=== PATIENT | male | born 1950 | race Caucasian/White ===

== ENCOUNTER 2019-03-20 09:29 | Inpatient (IN) | payer OTHER, MEDICARE ==
[~2019-03-20] VITALS: Ht 177.8 cm; Wt 127.9 kg
[~2019-03-20 09:29] MED LIST: BACITRACIN 50,000 UNIT VIAL ONE; CRESTOR10 MG PO; LISINOPRIL-HCT1 EAC1 PO; LORAZEPAM2 MG/1 M1 PO; METOPROLOL SUCC50 MG PO; NABUMETONE500 MG PO; NIFEDIPINE ER30 M1 PO; PROAIR HFA INH8.5 GM INH; ROPIVACAINE 246.25 MG, EPINEPHRINE HCL 1:1000 1ML 0.5 MG, CLONIDINE HCL 0.08 MG, KETORO... INJ ONE; SERTRALINE HCL50 MG PO; SODIUM CHLORIDE 0.9% 500ML 500 ML ONE; SYMBICORT 16010.2 GM INH; TRANEXAMIC ACID 1,000 MG/10 ML ML ONE; VANCOMYCIN HCL 1,000 MG ONE
[2019-03-20] MEDS ORDERED: CELECOXIB 200 MG CAP ONE (10:05)
[2019-03-20] MEDS ORDERED: DEXAMETHASONE SOD PHOS 10 MG/1 ML VIAL ONE (10:05)
[2019-03-20] MEDS ORDERED: GABAPENTIN 300 MG CAP ONE (10:05)
[2019-03-20] MEDS ORDERED: CEFAZOLIN SOD 1 GM/NS 50ML 100 ML IV ONE (10:06)
[2019-03-20] MEDS ORDERED: BUPIVACAINE 7.5MG/ML /DEXTROSE 82.5MG/ML 2 ML AMP INJ ONE (11:36)
[2019-03-20] MEDS ORDERED: HYDROCODONE/APAP 7.5MG-325MG 1 EA TAB PO PRN (13:30)
[2019-03-20] MEDS ORDERED: KETOROLAC TROMETHAMINE 30 MG/ML VIAL IV PRN (13:30)
[2019-03-20] MEDS ORDERED: DOCUSATE SODIUM 100 MG CAP PO PRN (13:30)
[2019-03-20] MEDS ORDERED: ACETAMINOPHEN 650 MG SUPP PR PRN (13:30)
[2019-03-20] MEDS ORDERED: DIPHENHYDRAMINE HCL INJ 50 MG/ML VIAL IM/IV PRN (13:30)
[2019-03-20] MEDS ORDERED: PROMETHAZINE HCL (IM) 25 MG/ML VIAL IM PRN (13:30)
[2019-03-20] MEDS ORDERED: ONDANSETRON HCL INJ 2MG/ML 2ML 2 MG/ML VIAL IV PRN (13:30)
[2019-03-20] MEDS ORDERED: HYDROCODONE/APAP 5MG-325MG TAB PO PRN (13:30)
--- NOTE | 2019-03-20 14:17 | Diagnostic Imaging Report ---
EXAMINATION: PELVIS AP 1-2 VIEWS INDICATION: Postoperative COMPARISON: None FINDINGS: AP image of the pelvis demonstrates postoperative findings of right total hip replacement. No acute fracture or dislocation. Hardware appears intact. Alignment appears anatomic. IMPRESSION: Anatomic alignment status post right total hip replacement. Signed by: Cherrie Horta MD on 03/20/2019 2:13 PM
--- OUTSIDE RECORDS SUMMARY | 2019-03-20 14:38 | XMS REPORT ---
Author Author [facility] Address Unknown Phone Unavailable Care Team Providers Care Premix Operator Concentrate Name Role Phone BRENDEN SAUER Unavailable Unavailable Problems This patient has no known problems. Allergies, Adverse Reactions, Alerts This patient has no known allergies or adverse reactions. Medications This patient has no known medications. Results Test Description Test Time Test Comments Text Results Atomic Results Result Comments PELVIS AP 1-2 VIEWS 2019-03-20 14:13:00 [place] [address] Patient Name: PETRA PAREDES MR #: [id number] : 1950 Age/Sex: 68/M Req #: [id number] [facility] Physician: Ordered by: BRENDEN SAUER MD Report #: [id number] Location: OR Room/Bed: Procedure: [id number] DX/PELVIS AP 1-2 VIEWS Exam Date: 03/20/19 Exam Time: 1340 REPORT STATUS: Signed EXAMINATION: PELVIS AP 1-2 VIEWS INDICATION: Postoperative COMPARISON: None FINDINGS: AP image of the pelvis demonstrates postoperative findings of right total hip replacement. No acute fracture or dislocation. Hardware appears intact. Alignment appears anatomic. IMPRESSION: Anatomic alignment status post right total hip replacement. Signed by: Bowen Horta MD on 03/20/2019 2:13 PM Dictated By: BOWEN HORTA MD [id number] Transcribed By: AMAURY on 03/20/19 141 COPY TO: BRENDEN SAUER MD
[2019-03-20] MEDS ORDERED: FENTANYL CITRATE/PF 100MCG/2 ML INJ ONE ×2 (15:40→20:01)
--- NOTE | 2019-03-20 16:09 | Operative Report ---
DATE OF PROCEDURE: 03/20/2019 SURGEON: Sahil Cook MD ECHOCARDIOGRAPH TECH: Jacob Vega PA-C. PREOPERATIVE DIAGNOSIS: Osteoarthritis, right hip. POSTOPERATIVE DIAGNOSIS: Osteoarthritis, right hip. PROCEDURE: Right total hip arthroplasty, * added complexity secondary to a BMI greater than 41. INDICATIONS: The patient is a 68-year-old gentleman with severe arthritic changes in his right hip. He has failed conservative management and would like to proceed with a right total hip replacement. The added challenges due to his BMI over 40 was explained. The added potential for perioperative complications was explained. The patient feels that he has made a reasonable effort at losing weight and has plateaued. He anticipates trying to lose more weight after the surgery. All of his questions were answered. He states he understands and wishes to proceed. DESCRIPTION OF PROCEDURE: The patient was brought to the operating room and given a spinal anesthetic. He received prophylactic antibiotics and tranexamic acid in the holding area. He was positioned in the left lateral decubitus position. Throughout the case, added time and expertise was felt to be necessary due to the patient's large size. He weighs nearly 300 pounds. His right hip was prepped and draped in a sterile manner. A preoperative time-out was performed. A posterior approach was made to the right hip. A slightly larger incision was necessary due to the patient's body habitus. Hemostasis was obtained with electrocautery. A deep self-retaining Charnley retractor was placed. Abundant subcutaneous adipose tissue was encountered. The posterior capsule was exposed. The short external rotators were released with electrocautery. Additional hemostasis was obtained. Challenges were encountered due to the deep and altered surgical field. The posterior capsule was released and the hip was dislocated. An oscillating saw was used to resect the femoral head. Complete loss of articular cartilage was noted. Acetabular retractors were carefully placed. Labral remnants were removed with a long-handled knife. The true floor of the acetabulum was established with a 46 mm reamer. The socket was then sequentially reamed up to 57 mm. This accomplished bleeding hemispherical cancellous bone. A Elvin Biomet 58 mm outer diameter OsseoTi socket was then impacted into place. Good fixation was felt to be obtained. Fixation was augmented with a single 25 mm cancellous screw placed into the ilium. The hip had been thoroughly irrigated numerous times throughout the portion of the case with a shower tip pulsatile lavage. A highly cross-linked polyethylene liner with no posterior elevation was then seated into place. Care was taken to make sure that there was no evidence of soft tissue interposition. Additional irrigation was performed with using a diluted spray mixture of polymyxin and vancomycin spray. The socket was packed with a moistly soaked lap sponge and attention was directed towards the proximal femur. A box cutting osteotome and taper pin reamer were used to establish entry to the femoral canal. The taper lock broaches were impacted. A size 13 stem had good canal fill and rotational stability for a trial reduction. A standard 36 mm head was felt to restore appropriate limb length and provide optimal stability. The trial implants were removed. The hip was further irrigated with the pulsatile lavage. The stem was seated. The trunnion was irrigated, cleaned and dried prior to seating a standard 36 mm ceramic head. A final reduction was performed. A 100 mL premixed pericapsular AMINA injection was placed into the surrounding soft tissue. A 500 mg of vancomycin powder was sprinkled into the deep portion of the wound. The posterior capsule was carefully repaired with #2 Ethibond. The proximal tensor fascia and gluteal fascia were closed with interrupted #2 Ethibond. The skin was closed with subcuticular Vicryl and haroon. A sterile Aquacel bandage was applied. The patient was returned to the supine position and transported to the recovery room in stable condition. Estimated blood loss was 250 mL. At the end of the procedure, all needle and sponge counts were correct. Sahil Cook MD DR/SANDRA /[id number]
[2019-03-20] MEDS ORDERED: CELECOXIB 100 MG CAP PO SCH (17:00)
[2019-03-20 17:14] VITALS: BP 114/72
[2019-03-20 17:41] VITALS: BP 114/72
[2019-03-20 17:53] VITALS: BP 114/72
[2019-03-20] MEDS: ACETAMINOPHEN 1000 MG/100 ML IV SCH ×2 (18:24→23:31)
[2019-03-20] MEDS: CELECOXIB 200 MG CAP PO SCH (18:24)
[2019-03-20] MEDS: ASPIRIN 325 MG TAB PO SCH (18:24)
[2019-03-20] MEDS: SODIUM CHLORIDE 0.9% 1000ML 1,000 ML IV SCH ×2 (18:24→23:23)
[2019-03-20] MEDS ORDERED: MIDAZOLAM HCL 5MG/ML 2ML VIAL ONE (20:01)
[2019-03-20] MEDS ORDERED: MIDAZOLAM HCL 2 MG/2 ML VIAL ONE (20:01)
[2019-03-20] MEDS: CEFAZOLIN SOD 1 GM/NS 50ML 50 ML IV SCH (20:23)
[2019-03-20 20:24] VITALS: BP 120/69
[2019-03-20 20:30] VITALS: BP 120/69
[2019-03-20] MEDS ORDERED: ZOLPIDEM TARTRATE 5 MG TAB PO PRN (21:00)
[2019-03-20 23:51] VITALS: BP 129/73
[2019-03-21] MEDS: CEFAZOLIN SOD 1 GM/NS 50ML 50 ML IV SCH ×2 (04:22→12:26)
[2019-03-21 05:12] VITALS: BP 105/80
[2019-03-21 05:14] LABS: HEMATOCRIT 37.5 % (38.2-49.6); HEMOGLOBIN 12.6 g/dL (14.0-18.0)
--- NOTE | 2019-03-21 05:27 | Consultation ---
DATE OF CONSULTATION: REASON FOR CONSULTATION: Postop medical management. HISTORY OF PRESENT ILLNESS: The patient is a 68-year-old gentleman, status post right hip arthroplasty. He is doing well postoperatively with minimal pain in the right hip and he denies fever, chills, nausea, vomiting, headache, shortness of breath, or dizziness. PAST MEDICAL HISTORY: Significant for hypertension, hyperlipidemia, reflux disease, anxiety. MEDICATIONS: See MAR. ALLERGIES: NONE. SOCIAL HISTORY: Nonsmoker, nondrinker. He is , still works full-time. FAMILY HISTORY: Noncontributory. PHYSICAL EXAMINATION: VITAL SIGNS: Temperature is 98.2, pulse 71, blood pressure 129/73, sats 96% on room air. GENERAL: He is in no apparent distress, lying in bed. NECK: Supple. CARDIOVASCULAR: Regular rate and rhythm. LUNGS: Clear to auscultation bilaterally. ABDOMEN: Good bowel sounds. Soft, nontender. EXTREMITIES: No clubbing or cyanosis. NEUROLOGIC: Nonfocal. ASSESSMENT AND PLAN: 1. Right hip arthroplasty. Continue with postoperative care. 2. Right hip pain. We will continue with postoperative pain medicines. 3. Anemia. Check a CBC. 4. Hypertension. We will restart his home medications at discharge. 5. Reflux disease. Restart his home medications at discharge. 6. Hyperlipidemia. We will restart his Crestor at discharge. Please see hospital chart for full details. MD IVONNE Patino/SANDRA /[id number]
[2019-03-21] MEDS: ACETAMINOPHEN 1000 MG/100 ML IV SCH ×2 (06:16→12:00)
[2019-03-21 08:25] VITALS: BP 123/72
[2019-03-21] MEDS: CELECOXIB 200 MG CAP PO SCH (08:30)
[2019-03-21] MEDS: ASPIRIN 325 MG TAB PO SCH (08:30)
--- NOTE | 2019-03-21 08:33 | NUR ---
Resident states "he took all his blood pressure medication" informed that those medications were not reordered by MD, and patient needs to inform nurse prior to taking medications, verbalized understanding
[2019-03-21 09:00] VITALS: BP 123/72
--- NOTE | 2019-03-21 09:13 | NUR ---
DR BLANCHARD OFFICE PREARRANGED FOLLOWING DISCHARGE PLAN [place] [id number] [address] [id number], HOME HEALTH WITH [facility] CONFIRMED WITH JOSEPHINE [phone] DME PER [facility] AT [employer] PT ALREADY HAS A WALKER AND 3 IN 1 IS NOT COVERED BY INSURANCE AND WAS GIVEN MEDCIAL SUPPLY BY [facility], PT AGREES WILL GET IF NEEDS.
[2019-03-21] MEDS ORDERED: ACETAMINOPHEN 1000 MG/100 ML IV PRN (13:30)
[2019-03-21] MEDS ORDERED: ONDANSETRON HCL 4 MG ORAL DISINTEGRATING TAB PO PRN (13:45)
== END 2019-03-21 13:40 | disposition home or self-care (01) | DRG 470 ==
LOC: OR 09:29 → PACU V 14:35 → IMCU 16:55
PROVIDERS: ADMIT Specialist; ATTEND Specialist
PROC: 0SR904A Replacement of Right Hip Joint with Ceramic on Polyethylene Synthetic Substitute, Uncemented, Open Approach (ICD-10-PCS; principal; 2019-03-20 12:03)
DX: M16.11 Unilateral primary osteoarthritis, right hip (principal); Z68.41 Body mass index [BMI] 40.0-44.9, adult; E66.01 Morbid (severe) obesity due to excess calories; G89.18 Other acute postprocedural pain; K21.9 Gastro-esophageal reflux disease without esophagitis; E78.5 Hyperlipidemia, unspecified; D64.9 Anemia, unspecified
CPT/HCPCS: 36415; 72170; 85014; 85018; 86850; 86900; 86920; 96361; C1713; J0171; J0690; J1100; J1885; J2250; J2795; J3010; J3370; J7040